=== PATIENT | male | born 2005 | race Caucasian/White ===

== ENCOUNTER → 2025-01-25 13:28 | Outpatient (REF) | payer BC, SELFPAY | LOC: MRI 3T 13:28 | PROVIDERS: ATTENDING PHYSICIAN Student in an Organized Health Care Education/Training Program | DX: M25.312 Other instability, left shoulder (principal); M25.512 Pain in left shoulder; S43.002D Unspecified subluxation of left shoulder joint, subsequent encounter | CPT/HCPCS: 23350; 73040; 73222 ==